=== PATIENT | female | born 1960 | race Caucasian/White ===

== ENCOUNTER 2020-02-14 22:52 | Emergency (ER) | payer MEDICAID, SELFPAY ==
--- NOTE | 2020-02-14 23:05 | ED.FALL ---
HPI - Fall General Chief Complaint: Chest Pain Stated Complaint: chest pain Time Seen by Provider: 02/14/20 23:05 Source: EMS Mode of arrival: EMS Limitations: language barrier History of Present Illness HPI Narrative: Fall yesterday today with shortness of breath and chest pain. Patient concerned that she hurt her rib Related Data Allergies Allergy/AdvReac Type Severity Reaction Status Date / Time piperacillin [From ZOSYN] Allergy Severe SWELLING Unverified 01/16/20 18:34 AND RUNNY NOSE tazobactam [From ZOSYN] Allergy Severe SWELLING Unverified 01/16/20 18:34 AND RUNNY NOSE Penicillins [PENICILLINS] Allergy Unknown ANAPHYLAXIS Unverified 01/16/20 18:34 Review of Systems Constitutional: Constitutional: Reports no additional constitutional complaints Eyes: Eyes: Reports no additional eye complaints ENT: Denies dizziness Cardiovascular: Cardiovascular: Reports no additional cardiovascular complaints Respiratory: Respiratory: Reports as per HPI Gastrointestinal: Gastrointestinal: Reports no additional gastrointestinal complaints Genitourinary: Genitourinary: Reports no additional female genitourinary complaints Musculoskeletal: Musculoskeletal: Reports no additional musculoskeletal complaints Integumentary/Breasts: Skin/Breast: Denies rash Neurologic: Reports system reviewed and no additional complaints, except as documented, Denies dizziness and Denies Sensory deficit (Neuro) Psychiatric: Psychiatric: Denies anxiety [facility] Past Medical History Medical History (Updated 02/15/20 @ 00:16 by Domenico Bellamy MD) Diabetes Hypertension Parkinson disease Social History Social History Advance Directives: No Advance Directives Information Provided: No Physical Exam Vital Signs: Vital Signs: Vital Signs Temp Pulse Resp BP Pulse Ox 02/14/20 23:10 99.1 F 101 H 16 108/63 94 Body Mass Index 34.7 Const: Other: female with movement disorder looking older than stated age Nutritional Appearance: overweight Orientation/consciousness: oriented to person and patient oriented x3 Limitations: no limitations HENMT: Head: Yes normal to inspection Ears: external ears normal General nose exam: Normal external nose present Mouth: Normal oral and palatal mucosa present and oropharynx normal Throat: Yes posterior oropharynx normal Eyes: General: appearance normal, both eyes and all related structures Neck: Other: supple Neck: Yes normal visual inspection Chest: Chest palpation & inspection: normal inspection of the chest Resp: Auscultation: clear to auscultation bilaterally Cardio: Jugular venous distension: no JVD Rate: regular rate Rhythm: regular rhythm Heart sounds: S1 normal heart sound present and S2 normal heart sound present GI: Inspection: Yes normal to inspection Palpation (GI): Soft to palpation, nontender and No hepatosplenomegaly present Auscultation: normal bowel sounds : General: Yes no CVA tenderness Back/Spine/Pelvis: Back: no CVA tenderness Skin: General skin exam: no rashes or lesions noted Neuro: Other: patient with restless legs and arms looks like movement disorder General: oriented to person and patient oriented x3 Cranial nerves: Yes CN's II-XII intact bilaterally Motor exam (neuro): 5/5 motor strength present throughout Sensory Exam: No Sensory deficit (Neuro) Extrem: General: Yes normal to inspection Psych: Appearance: grossly normal Course Course Course Narrative: resting comfortably no fractures on xray MDM - Fall Imaging Data Chest x-ray: Radiologist's impression: no PTX or rib fracture rib: Radiologist's impression: no fracture Discharge Plan Discharge Clinical Impression: Chest wall contusion Qualifiers: Encounter type: initial encounter Laterality: left Qualified Code(s): S20.212A - Contusion of left front wall of thorax, initial encounter Patient Disposition: Home, Self-Care Instructions: Contusion in Adults (ED) Additional Instructions: ice, tylenol or motrin for pain Referrals: Physician,Unknown [Primary Care Provider] - 2 days
[2020-02-14 23:10] VITALS: BP 108/63; BP 112/40; PULSE 100; PULSE 101; RESP 16; TEMP 37.3; O2SAT 94; O2SAT 98; BMI 34.7
--- NOTE | 2020-02-14 23:12 | XR_ITS ---
Indication: Fall, pain EXAMINATION: 2 views of the chest and 5 views of left RIBS. 2 view chest compared to previous dated 10/08/2018. Findings; There is no acute finding in the chest. No pneumothorax or effusion. The heart size is normal. The hilar structures do not appear pathologically enlarged. There is no effusion. Detail views of the left ribs do not demonstrate evidence of fracture. IMPRESSION: No fracture is seen here in the left ribs. No underlying pneumothorax or effusion.
[2020-02-15] MEDS: Ketorolac Tromethamine 60 MG/2 ML VIAL IM (00:13)
== END 2020-02-15 02:09 | disposition home or self-care (01) ==
PROVIDERS: Emergency Provider Emergency Medicine
DX: S20.212A Contusion of left front wall of thorax, initial encounter (principal); I10 Essential (primary) hypertension; E11.9 Type 2 diabetes mellitus without complications; W18.30XA Fall on same level, unspecified, initial encounter; Y93.01 Activity, walking, marching and hiking; Y92.9 Unspecified place or not applicable; Y99.9 Unspecified external cause status; Z79.899 Other long term (current) drug therapy
CPT/HCPCS: 71046; 71101; 96372; 99283; 99284; J1885

== ENCOUNTER 2020-03-20 12:37 | Emergency (ER) | payer MEDICAID, SELFPAY ==
[2020-03-20 12:47] VITALS: BP 218/110; PULSE 106; PULSE 97; RESP 19; TEMP 37.2; O2SAT 98; BMI 27.4
--- NOTE | 2020-03-20 12:58 | ED_ITS ---
HPI - Head Injury General Chief complaint: Fall Stated complaint: fall yesterday Time Seen by Provider: 03/20/20 12:50 Source: EMS Mode of arrival: EMS Limitations: no limitations History of Present Illness HPI Narrative: 60-year-old female food history of Parkinson's disease sometimes exacerbate more yesterday she states she was walking and she tripped/ became dizzy and fell on the ground hitting the head electrode his headaches like headaches is also submit pain. No LOC. No torso, lower extremity injury. MD Complaint: head injury and head pain Onset (ago): day(s) Mechanism of Injury: fall Place: home Loss of Consciousness: no Location of injury: frontal Severity scale (1-10): 3 Radiation: none Other Injuries: none Associated symptoms: denies other symptoms Related Data Allergies Allergy/AdvReac Type Severity Reaction Status Date / Time piperacillin [From ZOSYN] Allergy Severe SWELLING Unverified 01/16/20 18:34 AND RUNNY NOSE tazobactam [From ZOSYN] Allergy Severe SWELLING Unverified 01/16/20 18:34 AND RUNNY NOSE Penicillins [PENICILLINS] Allergy Unknown ANAPHYLAXIS Unverified 01/16/20 18:34 Review of Systems Review of Systems: Constitutional: No Weight loss, No Fever, No Chills, No Night Sweats, No Fatigue, No Malaise ENT/Mouth: No Hearing loss, No Ear Pain, No Nasal Congestion, No Sinus Pain Eyes: No Eye Pain, No Swelling, No Redness, No Foreign Body, No Discharge, No Vision Changes Cardiovascular: No Chest Pain, No SOB, No Dyspnea on Exertion, No Orthopnea, No Edema, No Palpitations Respiratory: No Cough, No Sputum, No Wheezing, No Smoke Exposure, No Dyspnea Gastrointestinal: No Nausea, No Vomiting, No Diarrhea, No Constipation, No abdominal Pain Genitourinary: no irregular bleeding, No Dysuria, No Urinary Frequency, No Hematuria, No Urinary Incontinence, No Urgency, No Flank Pain Musculoskeletal: No joint pain, No Myalgias, No Joint Swelling Skin: No Skin Lesions, No rash Neuro: No Weakness, No Numbness, No Paresthesias, No Loss of Consciousness, No Dizziness, No Headache Psych: No Anxiety/Panic, No Depression, No SI/HI/AH/VH Heme/Lymph: No Bruising, No Bleeding,No Lymphadenopathy Endocrine: No Polyuria, No Polydipsia, No Temperature Intolerance Yes all other systems are reviewed and are negative [facility] Past Medical History Attestation statement: The following information was validated with the patient. Medical History (Updated 03/20/20 @ 18:02 by Jesus Sommer NP) Diabetes Hypertension Parkinson disease Social History Social History Alcohol intake: never Smoked in Last 30 Days: No Use of substances other than those prescribed or required for medical reasons: No Advance Directives: No Advance Directives Information Provided: No Physical Exam Vital Signs: Vital Signs: Last Vital Signs Temp 97.8 F 03/20/20 16:25 Pulse 67 03/20/20 16:25 Resp 218 H 03/20/20 16:25 BP 127/70 03/20/20 16:25 Pulse Ox 97 03/20/20 16:25 Body Mass Index 27.4 Reviewed Const: General: cooperative and healthy appearing; No acute distress or intoxicated appearing Nutritional Appearance: average body habitus Orientation/consciousness: patient oriented x3 HENMT: Head: Yes normal to inspection Ears: hearing grossly normal bilaterally Eyes: General: appearance normal, both eyes and all related structures Visual Ying: normal visual ying by confrontation Neck: Neck: Yes normal visual inspection, No positive Brudzinski's sign, No positive Kernig's sign and No tender Thyroid: Thyroid normal Chest: Chest palpation & inspection: normal inspection of the chest Resp: Effort & Inspection: normal respiratory effort Auscultation: clear to auscultation bilaterally Cardio: Jugular venous distension: no JVD Rate: regular rate Rhythm: regular rhythm GI: Inspection: Yes normal to inspection Percussion: Yes normal to percussion Auscultation: normal bowel sounds : General: Yes no CVA tenderness Back/Spine/Pelvis: Back: no CVA tenderness Skin: General skin exam: no rashes or lesions noted Neuro: General: patient oriented x3 Extrem: General: Yes normal to inspection Right upper extremity: normal to inspection Left upper extremity: normal to inspection and full ROM Right lower extremity: normal to inspection MDM - Head Injury MDM Narrative Medical decision making narrative: patient given Ativan for her involuntary juan pablo jennifer like tremor worsened when she tries to focus and do stuff does have history of parkinsonian disease and this is chronic. She has not had any complaint of chest pain or shortness of breath. Has not had any description of seizure-like activity. Head neck CT unremarkable. Labs overall stable. Will discharge home with clear precaution return follow-up instructions. It is noted the patient w as here a week or so also for fall states she has no concern does use a walker. Does live at home with her son. Advised to follow up with her primary care doctor and in case she needs PT referral she can get that through primary care doctor. She declined case management here. Stable for discharge. Differential Diagnosis Differential diagnosis: Likely closed head injury; Unlikely concussion without loss of consciousness, epidural hematoma, subarachnoid hematoma, postconcussion syndrome, subdural hematoma and concussion with loss of consciousness Medical Records Attestation: I reviewed the patient's medical records. Lab Data Attestation: I reviewed the patient's lab results. Result diagrams: 03/20/20 16:56 03/20/20 16:56 Labs: Lab Results 03/20/20 03/20/20 03/20/20 Range/Units 16:56 16:56 16:56 WBC 11.0 H (4.8-10.8) X10*3/uL RBC 3.90 L (4.20-5.50) X10*6/uL Hgb 10.9 L (12.0-16.0) g/dl Hct 34.4 L (37-47) % MCV 88.2 (80-98) fL MCH 27.9 (27.0-33.0) pg MCHC 31.7 (31.0-35.0) g/dl RDW 13.1 (11.0-16.0) % Plt Count TNP MPV 11.4 (9.4-12.3) fL Immature Gran % (Auto) 0.4 (0.0-0.4) % Neut % (Auto) 76.1 H (45-73) % Lymph % (Auto) 15.3 L (20-40) % Bledsoe % (Auto) 6.8 (2-11) % Eos % (Auto) 1.1 (0-4) % Baso % (Auto) 0.3 (0-2) % Lymph # (Auto) 1.7 (1.2-4.9) X10*3/uL Bledsoe # (Auto) 0.8 (0.1-1.2) X10*3/uL Eos # (Auto) 0.1 (0.0-0.4) X10*3/uL Baso # (Auto) 0.0 (0.0-0.2) X10*3/uL Abs Immat Gran (auto) 0.04 H (0.00-0.03) X10*3/uL Absolute Neuts (auto) 8.4 H (2.0-8.3) X10*3/uL Absolute Nucleated RBC 0.000 (0.0-0.012) X10*3/uL Nucleated RBC % (auto) 0.0 (0.0-0.2) /100WBC Smear Tech's Comments VERIFIED Sodium 140 (135-145) mmol/L Potassium 4.7 (3.3-5.1) mmol/l Chloride 105 (96-108) mmol/L Carbon Dioxide 26 (22-29) mmol/L Anion Gap 14 (12-20) BUN 15 (9-16) mg/dL Creatinine 0.84 (0.5-1.4) mg/dL Estim Creat Clear Calc 75.6 Estimated GFR > 60 Random Glucose 154 H (60-115) mg/dL Calcium 8.2 L (8.4-10.2) mg/dL Total Bilirubin 0.6 (0.0-1.0) mg/dL AST 155 H (5-31) U/L ALT 19 (0-31) U/L Alkaline Phosphatase 164 H (39-117) U/L Troponin I High Sens < 3.5 (<3.5-17.0) ng/L Total Protein 6.9 (6.5-8.0) g/dL Albumin 4.0 (3.5-5.0) g/dL Ethyl Alcohol mg/dL 03/20/20 Range/Units 16:56 WBC (4.8-10.8) X10*3/uL RBC (4.20-5.50) X10*6/uL Hgb (12.0-16.0) g/dl Hct (37-47) % MCV (80-98) fL MCH (27.0-33.0) pg MCHC (31.0-35.0) g/dl RDW (11.0-16.0) % Plt Count MPV (9.4-12.3) fL Immature Gran % (Auto) (0.0-0.4) % Neut % (Auto) (45-73) % Lymph % (Auto) (20-40) % Bledsoe % (Auto) (2-11) % Eos % (Auto) (0-4) % Baso % (Auto) (0-2) % Lymph # (Auto) (1.2-4.9) X10*3/uL Bledsoe # (Auto) (0.1-1.2) X10*3/uL Eos # (Auto) (0.0-0.4) X10*3/uL Baso # (Auto) (0.0-0.2) X10*3/uL Abs Immat Gran (auto) (0.00-0.03) X10*3/uL Absolute Neuts (auto) (2.0-8.3) X10*3/uL Absolute Nucleated RBC (0.0-0.012) X10*3/uL Nucleated RBC % (auto) (0.0-0.2) /100WBC Smear Tech's Comments Sodium (135-145) mmol/L Potassium (3.3-5.1) mmol/l Chloride (96-108) mmol/L Carbon Dioxide (22-29) mmol/L Anion Gap (12-20) BUN (9-16) mg/dL Creatinine (0.5-1.4) mg/dL Estim Creat Clear Calc Estimated GFR Random Glucose (60-115) mg/dL Calcium (8.4-10.2) mg/dL Total Bilirubin (0.0-1.0) mg/dL AST (5-31) U/L ALT (0-31) U/L Alkaline Phosphatase (39-117) U/L Troponin I High Sens (<3.5-17.0) ng/L Total Protein (6.5-8.0) g/dL Albumin (3.5-5.0) g/dL Ethyl Alcohol < 10 mg/dL Imaging Data head/cervical spine CT: Radiologist's impression: [address] [address] [address] Scan Report Signed Patient: Seema MayenMR#: [id number] : 1Acct:[id number] Age/Sex: 60 / FADM Date: 03/20/20 Loc: HO.ED Attending Dr: Ordering Physician: Jesus Sommer NP Date of Service: 03/20/20 Procedure(s): CT cervical spine wo con Accession Number(s): [id number] cc: Jesus Sommer CLIENT REPRESENTATIVE~ EXAMINATION: CT HEAD WITHOUT CONTRAST CT CERVICAL SPINE WITHOUT CONTRAST CLINICAL INFORMATION: Fall COMPARISON: None. TECHNIQUE: Multidetector CT imaging of the head and cervical spine was performed without the use of intravenous contrast. Multiplanar reformats are reviewed. This CT examination was performed using dose optimization techniques as appropriate, variously including the following: *Automated exposure control *Adjustment of mA and/or kV according to patient size (this includes techniques or standardized protocols for targeted exams where dose is matched to indication/reason for exam; i.e. extremities or head) *Use of iterative reconstruction technique DLP: 1209 mGy-cm. FINDINGS: There is no evidence of acute intracranial hemorrhage or territorial infarction. No abnormal mass effect or midline shift is seen. Hendricks to white matter differentiation is well preserved. No extra-axial fluid collections are identified. The ventricles are normal in size. There is no abnormal attenuation within the brain parenchyma. The osseous structures and soft tissues are normal. The mastoid air cells and visualized portions of the paranasal sinuses are well-aerated. Atlantooccipital alignment is maintained. The vertebral bodies and posterior elements align normally. No acute fracture or subluxation. Vertebral body heights are maintained. Small endplate osteophytes present throughout the cervical spine. No significant osseous neural foraminal encroachment or central canal stenosis. Paraspinal soft tissues unremarkable. CT/CT cervical spine wo con IMPRESSION: No acute intracranial pathology. No cervical spine fracture or malalignment. Dictated By:VALERIE OCAMPO MD Signed By:<Electronically signed by VALERIE OCAMPO MD in OV>03/20/20 1632 DD/ 1259 TD/TT: Trailer Truck Driver: KASEY Chest x-ray: Radiologist's impression: [address] [address] XRay Report Signed Patient: Seema MayenMR#: [id number] : 1960cct:[id number] Age/Sex: 60 / FADM Date: 03/20/20 Loc: HO.ED Attending Dr: Ordering Physician: Jesus Sommer NP Date of Service: 03/20/20 Procedure(s): XR chest 1V Accession Number(s): [id number] cc: Jesus Sommer CLIENT REPRESENTATIVE~ EXAMINATION: XR CHEST CLINICAL INFORMATION: Fall, trauma, pain COMPARISON: None TECHNIQUE: Portable upright AP view of the chest was obtained. FINDINGS: Patient is rotated to the left. There is no pneumothorax or pleural reaction. No airspace consolidation or effusion. There is tapering at the cardiac apex consistent with areolar tissue. The vascularity is normal. The visualized hilar and mediastinal contours are unremarkable. There are degenerative changes thoracic spine and right acromioclavicular joint. XR/XR chest 1V IMPRESSION: Unremarkable examination. Dictated By:MAZIN NELSON MD Signed By:<Electronically signed by MAZIN NELSON MD in OV>03/20/20 1344 DD/ 1259 TD/TT: Trailer Truck Driver: KRISHNAN Discharge Plan Discharge Clinical Impression: Fall, Cervical muscle strain, Contusion of scalp Patient Disposition: Home, Self-Care Instructions: Scalp Contusion in Adults (ED), Fall Prevention (ED), Acute Neck Pain (ED) Referrals: Sherley Fabian MD [Primary Care Provider] - 1 week
[2020-03-20] MEDS: Morphine Sulfate 4 MG/ML CARTRIDGE IVPUSH (13:50)
[2020-03-20] MEDS: ondansetron HCL 4 MG/2 ML VIAL IVPUSH (13:51)
[2020-03-20] MEDS: LORazepam 2 MG/ML VIAL 1 MG IVPUSH ×2 (13:51→14:35)
[2020-03-20] MEDS: 0.9 % Sodium Chloride 1,000 ML 1000 ML IV (13:51)
--- NOTE | 2020-03-20 14:24 | PC.NURSE ---
UNABLE TO TOLERATE CT. MORTUARY OPERATIONS MANAGER AWARE.
--- NOTE | 2020-03-20 14:49 | PC.NURSE ---
riffler tender at bedside. pt aware of need to relax states she suffers from anxiety. additional ativan given.
--- NOTE | 2020-03-20 15:55 | PC.NURSE ---
pt to ct again d/t sleeping and laying still. pt to ct and once on table starting to not cooperate. pt back to room. development rep and machine sign writer to bedside to discuss pt behavior and need for her to cooperate.
[2020-03-20 16:25] VITALS: BP 127/70; PULSE 67; RESP 218; TEMP 36.6; O2SAT 97
[2020-03-20 17:19] LABS: MANUAL DIFF FLAG SCAN; PLT CLUMP 1; Red Cell Distribution Width 13.1 % (11.0-16.0); SCAN SMEAR FLAG 1
[2020-03-20 17:20] LABS: Basophils Percent Auto 0.3 % (0-2); Eosinophils Absolute Auto 0.1 X10*3/uL (0.0-0.4); Eosinophils Percent Auto 1.1 % (0-4); Hematocrit 34.4 % (37-47); Hemoglobin 10.9 g/dl (12.0-16.0); Imm Gran Abs Auto 0.04 X10*3/uL (0.00-0.03); Imm Gran Pct Auto 0.4 % (0.0-0.4); Lymphocytes Absolute Auto 1.7 X10*3/uL (1.2-4.9); Lymphocytes Percent Auto 15.3 % (20-40); Mean Corpuscular HGB Conc 31.7 g/dl (31.0-35.0); Mean Corpuscular Hemoglobin 27.9 pg (27.0-33.0); Mean Corpuscular Volume 88.2 fL (80-98); Mean Platelet Volume 11.4 fL (9.4-12.3); Monocytes Absolute Auto 0.8 X10*3/uL (0.1-1.2); Monocytes Percent Auto 6.8 % (2-11); Neutrophils Absolute Auto 8.4 X10*3/uL (2.0-8.3); Neutrophils Percent Auto 76.1 % (45-73)
[2020-03-20 17:41] LABS: Ethanol < 10 mg/dL
[2020-03-20 17:44] LABS: SLIDE REVIEW VERIFIED
[2020-03-20 17:45] LABS: Troponin-I High Sensitivity < 3.5 ng/L (<3.5-17.0)
[2020-03-20 17:46] LABS: Alanine Aminotransferase 19 U/L (0-31); Alkaline Phosphatase 164 U/L (39-117); Anion Gap 14 (12-20); Aspartate Amino Transferase 155 U/L (5-31); Bilirubin Total 0.6 mg/dL (0.0-1.0); Blood Urea Nitrogen 15 mg/dL (9-16); Calcium 8.2 mg/dL (8.4-10.2); Carbon Dioxide 26 mmol/L (22-29); Chloride 105 mmol/L (96-108); Creatinine Clr Calc Pharmacy 75.6; Estimated Glomerular Filt Rate > 60; Glucose Random 154 mg/dL (60-115); Potassium 4.7 mmol/l (3.3-5.1); Sodium 140 mmol/L (135-145); Total Protein 6.9 g/dL (6.5-8.0)
[2020-03-20 18:10] LABS: Prothrombin Time 12.3 SEC (10.8-13.0)
[2020-03-20 18:16] LABS: Partial Thromboplastin Time 16.6 SEC (24.1-38.0)
--- NOTE | 2020-03-20 18:32 | PC.NURSE ---
call placed to son. states she needs ambulance ride home d.t inability to walk/ tremors. dc gone over with son.
--- NOTE | 2020-03-20 19:25 | PC.NURSE ---
Report taken from christine Holguin RN resuming care. Plan for ambulance transport home.
[2020-03-20 19:26] VITALS: BP 123/72; PULSE 84; RESP 16; TEMP 36.7; O2SAT 95
--- NOTE | 2020-03-20 20:01 | PC.NURSE ---
EMS at bedside for transport home. This RN calling pts son to be sure he will be home for their arrival.
== END 2020-03-20 20:16 | disposition home or self-care (01) ==
PROVIDERS: Nurse Practitioner Primary Care; Emergency Provider Emergency Medicine; PCP Internal Medicine
DX: S00.03XA Contusion of scalp, initial encounter (principal); S16.1XXA Strain of muscle, fascia and tendon at neck level, initial encounter; M54.2 Cervicalgia; G44.309 Post-traumatic headache, unspecified, not intractable; G20 Parkinson's disease; W18.39XA Other fall on same level, initial encounter; Y93.9 Activity, unspecified; Y92.009 Unspecified place in unspecified non-institutional (private) residence as the place of occurrence of the external cause; Y99.9 Unspecified external cause status
CPT/HCPCS: 36415; 70450; 71045; 72125; 80053; 80320; 84484; 85025; 85610; 85730; 96361; 96374; 96375; 96376; 99284; J2060; J2270; J2405

== ENCOUNTER 2020-05-19 07:59 | Outpatient (REF) | payer MEDICAID, SELFPAY | END 2020-05-19 08:00 | disposition home or self-care (01) | LOC: HO.HOSX 07:59 | PROVIDERS: Visit Provider Orthopaedic Surgery | DX: Z13.89 Encounter for screening for other disorder (principal) ==

== ENCOUNTER 2020-05-24 15:10 | Emergency (ER) | payer MEDICAID, SELFPAY ==
--- NOTE | 2020-05-24 15:22 | ED_ITS ---
HPI - Extremity Problem General Chief complaint: Extremity Injury, Lower Stated complaint: BILATERAL FEET SWELLING Time Seen by Provider: 05/24/20 15:24 Source: patient Mode of arrival: EMS Limitations: language barrier History of Present Illness HPI Narrative: Patient has history of Parkinson disease hypertension diabetes no history of CHF in the past no liver problems comes here by ambulance for increased bilateral leg swelling for last few days more so for last 2 days also patient complaining of pain in the left hip no known injury no shortness of breath no cough no abdominal distension Complaint: extremity swelling Onset (ago): day(s) (2) Location: left and right Related Data Previous Rx's Medication Instructions Recorded lorazepam 0.5 mg tablet 0.5 mg PO BEDTIME PRN 30 Days #30 05/06/20 tab hydrochlorothiazide 12.5 mg PO QAM #14 tab 05/24/20 Allergies Allergy/AdvReac Type Severity Reaction Status Date / Time piperacillin [From ZOSYN] Allergy Severe SWELLING Verified 05/24/20 15:24 AND RUNNY NOSE tazobactam [From ZOSYN] Allergy Severe SWELLING Verified 05/24/20 15:24 AND RUNNY NOSE Penicillins [PENICILLINS] Allergy Unknown ANAPHYLAXIS Verified 05/24/20 15:24 Review of Systems Review of Systems: Constitutional : No Weight loss, No Fever, No Chills ENT/Mouth : No sore throat, No Rhinorrhea Eyes: No Eye Pain, No Swelling Cardiovascular : No Chest Pain, no palpitations Respiratory : No Cough, No Sputum, no shortness of breath Gastrointestinal : no Nausea, No Vomiting, No Diarrhea, No abdominal Pain, no black stools Genitourinary : No Dysuria, No Urinary Frequency Musculoskeletal : Bilateral hip pain No Myalgias, No Joint Swelling Skin : No Skin Lesions, No rash Neuro : No Weakness, No Numbness, No Dizziness, No Headache Psych : No Anxiety/Panic, No Depression Heme/Lymph: No Bruising, No Lymphadenopathy Endocrine : No Polyuria, No Polydipsia All other systems reviewed and are negative PENDING SALE TO [facility] Past Medical History Medical History Anxiety Benign essential hypertension Constipation Diabetes mellitus GERD without esophagitis Hypertension Insomnia Left knee pain Parkinson's disease Pure hypercholesterolemia Surgical History History of appendectomy History of hysterectomy Family History Family History Other Diabetes mellitus Social History Social History Alcohol intake: never Smoking Status: Never smoker Physical Exam Vital Signs: Vital Signs: Last Vital Signs Temp 98.9 F 05/24/20 15:24 Pulse 95 05/24/20 16:00 Resp 18 05/24/20 16:00 BP 128/75 05/24/20 16:00 Pulse Ox 100 05/24/20 15:24 Body Mass Index 32.0 Appearance: Alert. Oriented X3. No acute distress. Frequent involuntary body movements secondary to Parkinson disease Eyes: Pupils equal, round and reactive to light. ENT: Pharynx normal. Neck: Normal inspection. Neck supple. CVS: Normal heart rate and rhythm. Pulses normal. Respiratory: No respiratory distress. Breath sounds normal. No crackles no rales Abdomen: Soft and nontender. Bowel sounds are present, no mass palpable, no CVA tenderness Skin: Skin warm and dry. Normal skin color. Normal skin turgor. Extremities: 2+ pitting bilateral lower extremity edema. No calf tenderness good hip ROM , diffuse left hip pain no spinal tenderness Neuro: Oriented X 3. No motor deficit. No sensory deficit. MDM - Extremity (Nontraumatic) MDM Narrative Medical decision making narrative: Patient chest x-ray and hip x-ray is n egative, Patient likely with dependent leg edema will check her CBC BNP and liver functions. Patient signed out to Dr. Rothman to review the labs and disposition ECG Data Attestation EKG: I personally reviewed and interpreted this ECG as follows: Interpretation: Normal sinus rhythm heart rate 83 beats per minute nonspecific ST T wave changes normal intervals, impression no acute ischemia Discharge Plan Discharge Clinical Impression: Leg edema Patient Disposition: Home, Self-Care Instructions: Leg Edema (ED) Additional Instructions: Keep your legs elevated. Take water pill daily as needed for increased leg swelling and follow with PCP Prescriptions: New hydrochlorothiazide 12.5 mg tablet 12.5 mg PO QAM Qty: 14 RF: 0 No Action lorazepam 0.5 mg tablet 0.5 mg PO BEDTIME PRN (Reason: anxiety) 30 Days Qty: 30 RF: 1
[2020-05-24 15:24] VITALS: BP 105/68; BP 110/56; PULSE 90; PULSE 94; RESP 18; TEMP 37.2; O2SAT 100; BMI 32.0
--- NOTE | 2020-05-24 15:25 | XR_ITS ---
EXAMINATION: XR CHEST CLINICAL INFORMATION: Evaluate for CHF COMPARISON: 03/20/2020 TECHNIQUE: Frontal view of the chest was obtained. FINDINGS: The cardiomediastinal silhouette is stable. No focal consolidation. No pleural effusion or pneumothorax. No significant pulmonary edema. No acute osseous abnormality. XR/XR chest 1V IMPRESSION: No acute disease within the chest.
--- NOTE | 2020-05-24 15:25 | ECG_ITS ---
Test Reason : LEG PAIN Blood Pressure : / mmHG Vent. Rate : 083 BPM Atrial Rate : 083 BPM P-R Int : 136 ms QRS Dur : 084 ms QT Int : 372 ms P-R-T Axes : 081 012 -49 degrees QTc Int : 437 ms Poor data quality Normal sinus rhythm When compared with ECG of 28-APR-2019 16:16, Poor data quality in current ECG precludes serial comparison Referred By: Chad Vera Electronically Signed By:Dony Sewell
--- NOTE | 2020-05-24 15:34 | XR_ITS ---
EXAMINATION: XR HIP, LEFT CLINICAL INFORMATION: Pain in the groin. COMPARISON: None TECHNIQUE: Two views of the left hip. FINDINGS: There is normal symmetry of bilateral hip joints and SI joints. No visible acute fracture, dislocation or subluxation seen. There is no bony abnormality seen. The soft tissues are normal. XR/XR hip LT w PEL1V IMPRESSION: Unremarkable AP pelvis and left hip exam
[2020-05-24 16:00] VITALS: BP 128/75; PULSE 95; RESP 18
--- NOTE | 2020-05-24 16:02 | PC.NURSE ---
plus 3 pitting edema through to knees.
--- NOTE | 2020-05-24 16:14 | PC.NURSE ---
pt is a difficult stick. multiple misses for this rn.
[2020-05-24 16:34] LABS: MANUAL DIFF FLAG NO
[2020-05-24 16:35] LABS: Basophils Percent Auto 0.1 % (0-2); Eosinophils Absolute Auto 0.2 X10*3/uL (0.0-0.4); Eosinophils Percent Auto 1.9 % (0-4); Hematocrit 28.1 % (37-47); Imm Gran Abs Auto 0.06 X10*3/uL (0.00-0.03); Imm Gran Pct Auto 0.7 % (0.0-0.4); Lymphocytes Absolute Auto 1.7 X10*3/uL (1.2-4.9); Lymphocytes Percent Auto 18.9 % (20-40); Mean Corpuscular Hemoglobin 27.8 pg (27.0-33.0); Mean Corpuscular Volume 86.7 fL (80-98); Mean Platelet Volume 10.3 fL (9.4-12.3); Monocytes Absolute Auto 0.5 X10*3/uL (0.1-1.2); Monocytes Percent Auto 5.4 % (2-11); Neutrophils Absolute Auto 6.5 X10*3/uL (2.0-8.3); Platelet Count 243 X10*3/uL (160-400); Red Blood Count 3.24 X10*6/uL (4.20-5.50); Red Cell Distribution Width 13.3 % (11.0-16.0); White Blood Count 8.9 X10*3/uL (4.8-10.8)
[2020-05-24 17:09] LABS: Alanine Aminotransferase < 6 U/L (0-31); Alkaline Phosphatase 108 U/L (39-117); Anion Gap 13 (12-20); Aspartate Amino Transferase 14 U/L (5-31); Bilirubin Direct < 0.2 mg/dL (0.0-0.5); Bilirubin Total 0.3 mg/dL (0.0-1.0); Blood Urea Nitrogen 16 mg/dL (9-16); Calcium 8.6 mg/dL (8.4-10.2); Carbon Dioxide 25 mmol/L (22-29); Chloride 108 mmol/L (96-108); Creatinine Clr Calc Pharmacy 79.6; Estimated Glomerular Filt Rate > 60; Glucose Random 111 mg/dL (60-115); Potassium 4.1 mmol/l (3.3-5.1); Sodium 142 mmol/L (135-145); Total Protein 7.3 g/dL (6.5-8.0)
[2020-05-24 17:13] LABS: B Type Natriuretic Peptide 19 pg/mL (<100)
--- NOTE | 2020-05-24 17:39 | PC.NURSE ---
call fady for ride [phone]
== END 2020-05-24 19:07 | disposition home or self-care (01) ==
PROVIDERS: Internal Medicine; Emergency Provider Emergency Medicine Emergency Medical Services; PCP Internal Medicine
DX: R60.0 Localized edema (principal); Z79.899 Other long term (current) drug therapy
CPT/HCPCS: 36415; 71045; 73502; 80048; 80076; 83880; 85025; 93005; 99283; 99284